=== PATIENT | female | born 1960 | race Caucasian/White ===

== ENCOUNTER 2017-10-28 08:34 | Outpatient (CLI) | payer OTHER ==
--- NOTE | 2017-10-28 10:06 | MMO ---
BILATERAL SCREENING MAMMOGRAMS: Comparison: 2013, 2014, 2016 This study is interpreted with the assistance of computer aided detection. FINDINGS: Heterogeneously dense glanular pattern. There are benign calcifications. Lymph node in the outer left breast is again noted and is stable. No evidence of mass or distortion. No interval change noted. Re commend one year follow up. IMPRESSION: BIRADS category 2 - benign findings. POS: [facility]
== END 2017-10-28 08:35 | disposition home or self-care (01) ==
LOC: SCSMAMMO 08:34
PROVIDERS: ATTEND Family Medicine
DX: Z12.31 Encounter for screening mammogram for malignant neoplasm of breast (principal)
CPT/HCPCS: 77067